=== PATIENT | male | born 1965 | race Hispanic/Latino ===

== ENCOUNTER 2020-06-09 11:34 | Emergency (ER) | payer BC ==
[2020-06-09 12:15] VITALS: BP 145/87
--- NOTE | 2020-06-09 12:18 | Event Note ---
ED Screening Note ED Screening Note: comes to ER with r side pain pmh has been told in the past he had fluid on his lung-no follow up no meds no rx no cig/etoh/drugs HR 120's temp 100.5 no cough no fever at home denies cp This initial assessment/diagnostic orders/clinical plan/treatment(s) is/are subject to change based on patients health status, clinical progression and re- assessment by fellow clinical providers in the ED. Further treatment and workup at subsequent clinical providers discretion. Patient/guardian urged not to elope from the ED as their condition may be serious if not clinically assessed and managed. Initial orders include: labs ekg xray
--- NOTE | 2020-06-09 12:42 | XRay Report ---
XR chest routine 2V INDICATION / CLINICAL INFORMATION: Chest Pain COMPARISON: None available. FINDINGS: SUPPORT DEVICES: None. HEART / MEDIASTINUM: No significant abnormality. LUNGS / PLEURA: Linear parenchymal opacities in the bilateral lower lung zones. Costophrenic sulci ar e sharp. No pneumothorax. ADDITIONAL FINDINGS: No significant additional findings. IMPRESSION: 1. Linear parenchymal opacities in the lower lung zones could represent subsegmental atelectasis and/ or scarring. No definite airspace disease. Signer Name: Gunnar Benitez MD Signed: 06/09/2020 12:37 PM Workstation Name: [id number]
[2020-06-09 13:13] LABS: Basophils % (Auto) 0.3 % (0.0-1.8); Eosinophils % (Auto) 0.2 % (0.0-4.3); Hematocrit 44.8 % (35.5-45.6); Hemoglobin 15.2 gm/dl (11.8-15.2); Lymphocytes # (Auto) 1.1 K/mm3 (1.2-5.4); Lymphocytes % (Auto) 12.9 % (13.4-35.0); Mean Corpuscular HGB Conc 34 % (32-34); Mean Corpuscular Volume 93 fl (84-94); Monocytes # (Auto) 0.5 K/mm3 (0.0-0.8); Monocytes % (Auto) 5.9 % (0.0-7.3); Platelet Count 236 K/mm3 (140-440); Red Blood Count 4.83 M/mm3 (3.65-5.03); Red Cell Distribution Width 14.9 % (13.2-15.2)
[2020-06-09 13:38] LABS: Alanine Aminotransferase 12 units/L (7-56); Albumin 4.2 g/dL (3.9-5); BUN/Creatinine Ratio 6; Blood Urea Nitrogen 9 mg/dL (9-20); Calcium 9.3 mg/dL (8.4-10.2); Hemolysis Index 4
--- NOTE | 2020-06-09 14:25 | Emergency Department Report ---
ED General Adult HPI - General Chief complaint: Back Pain/Injury Stated complaint: NECK/BACK PAIN PUI?: Yes Time Seen by Provider: 06/09/20 12:16 Source: patient Mode of arrival: Wheelchair Limitations: Physical Limitation - History of Present Illness Initial comments: CC: neck pain, right side pain, right hip pain HPI: This is a 54 yo male with hx of gout, cervical DDD, lumbar DDD s/p lumbar fusion, "fluid on the lungs" who presents with several weeks of pain. He first noticed neck pain which improved with ibuprofen. He then developed severe right sided torso pain in the mid-axillary region of thorax and flank. He has has severe right hip pain. Pain in flank worse with inspiration and laughter, sharp, 10/10. Patient has difficulty bearing weight on right hip. Neck pain dull achy. Diffuse. Mild in nature. Patient denies use of recreational drugs. Patient does not have a PCP. He previously followed learning coordinator Dr. Braga for gout. He takes colchicine. He does not take any other medication. -: Gradual, week(s) (3 weeks) Location: neck, chest, back, right, upper extremity Severity scale (0 -10): 10 Quality: aching, sharp Consistency: constant Improves with: none Worsens with: movement Associated Symptoms: other (Fever detected at triage) Treatments Prior to Arrival: none - Related Data Previous Rx's Medication Instructions Recorded Last Taken Type Azithromycin [Zithromax TAB] 250 mg PO QDAY 5 Days #6 tablet 06/09/20 Unknown Rx HYDROcodone/APAP 5-325 [[place] 1 each PO Q6HR PRN #15 tablet 06/09/20 Unknown Rx 5/325] Ibuprofen [Motrin 800 MG tab] 800 mg PO Q8HR PRN #20 tablet 06/09/20 Unknown Rx Allergies Allergy/AdvReac Type Severity Reaction Status Date / Time No Known Allergies Allergy Unverified 06/09/20 12:11 ED Review of Systems ROS: Stated complaint: NECK/BACK PAIN Other details as noted in HPI Comment: All other systems reviewed and negative Constitutional: denies: chills, fever, malaise Respiratory: denies: cough, shortness of breath Cardiovascular: chest pain Gastrointestinal: denies: abdominal pain, nausea, vomiting Musculoskeletal: arthralgia ED Past Medical Hx - Past Medical History Previous Medical History?: Yes Additional medical history: FLUID AROUND LUNGS/ GOUT - Surgical History Past Surgical History?: Yes Additional Surgical History: TONSILS BACK L5 FUSION - Social History Smoking Status: Never Smoker Substance Use Type: None - Medications Home Medications: Home Medications Medication Instructions Recorded Confirmed Last Taken Type Azithromycin [Zithromax TAB] 250 mg PO QDAY 5 Days #6 tablet 06/09/20 Unknown Rx HYDROcodone/APAP 5-325 [[place] 1 each PO Q6HR PRN #15 tablet 06/09/20 Unknown Rx 5/325] Ibuprofen [Motrin 800 MG tab] 800 mg PO Q8HR PRN #20 tablet 06/09/20 Unknown Rx ED Physical Exam - General Limitations: Physical Limitation General appearance: alert, in no apparent distress, other (Appears extremely uncomfortable, laying on left side) - Head Head exam: Present: atraumatic, normocephalic - Eye Eye exam: Present: normal appearance - ENT ENT exam: Present: mucous membranes moist - Neck Neck exam: Present: normal inspection - Respiratory Respiratory exam: Present: normal lung sounds bilaterally. Absent: respiratory distress - Cardiovascular Cardiovascular Exam: Present: normal rhythm, tachycardia, normal heart sounds. Absent: systolic murmur, diastolic murmur, rubs, gallop - GI/Abdominal GI/Abdominal exam: Present: soft, normal bowel sounds. Absent: distended, tende rness, guarding, rebound - Rectal Rectal exam: Present: deferred - Extremities Exam Extremities exam: Present: normal inspection - Expanded Lower Extremity Exam Right Hip exam: Present: normal inspection, full ROM. Absent: tenderness, swelling, abrasion, laceration, ecchymosis Upper Leg exam: Present: normal inspection, full ROM. Absent: tenderness, swelling Knee exam: Present: normal inspection, full ROM - Neurological Exam Neurological exam: Present: alert, oriented X3 - Psychiatric Psychiatric exam: Present: normal affect, normal mood - Skin Skin exam: Present: warm, dry, intact, normal color. Absent: rash ED Course Vital Signs 06/09/20 06/09/20 12:12 12:15 Temperature 100.5 F H Pulse Rate 121 H Respiratory 24 Rate Blood Pressure 145/87 [Right] O2 Sat by Pulse 96 Oximetry ED Medical Decision Making - Lab Data Result diagrams: 06/09/20 12:50 06/09/20 14:41 Laboratory Results - last 24 hr 06/09/20 06/09/20 06/09/20 12:50 12:51 13:04 WBC 8.6 RBC 4.83 Hgb 15.2 Hct 44.8 MCV 93 MCH 32 MCHC 34 RDW 14.9 Plt Count 236 Lymph % (Auto) 12.9 L [place] % (Auto) 5.9 Eos % (Auto) 0.2 Baso % (Auto) 0.3 Lymph # (Auto) 1.1 L [place] # (Auto) 0.5 Eos # (Auto) 0.0 Baso # (Auto) 0.0 Seg Neutrophils % 80.7 H Seg Neutrophils # 6.9 Sodium 135 L Potassium 4.5 Chloride 99.6 Carbon Dioxide 24 Anion Gap 16 BUN 9 Creatinine 1.5 H Estimated GFR 49 BUN/Creatinine Ratio 6 Glucose 141 H Lactic Acid 1.00 Calcium 9.3 Total Bilirubin 0.70 AST 13 ALT 12 Alkaline Phosphatase 56 Troponin T < 0.010 NT-Pro-B Natriuret Pep Total Protein 7.9 Albumin 4.2 Albumin/Globulin Ratio 1.1 Lipase 16 06/09/20 13:04 WBC RBC Hgb Hct MCV MCH MCHC RDW Plt Count Lymph % (Auto) [place] % (Auto) Eos % (Auto) Baso % (Auto) Lymph # (Auto) [place] # (Auto) Eos # (Auto) Baso # (Auto) Seg Neutrophils % Seg Neutrophils # Sodium Potassium Chloride Carbon Dioxide Anion Gap BUN Creatinine Estimated GFR BUN/Creatinine Ratio Glucose Lactic Acid Calcium Total Bilirubin AST ALT Alkaline Phosphatase Troponin T NT-Pro-B Natriuret Pep 11.86 Total Protein Albumin Albumin/Globulin Ratio Lipase - EKG Data -: EKG Interpreted by Oh EKG shows normal: sinus rhythm, intervals, QRS complexes, ST-T waves Rate: tachycardia - EKG Data 06/09/20 14:38 EKG obtained 1427 EKG interpreted by id Sinus tachycardia 110 bpm normal rate left axis deviation normal intervals no ST elevation no ST-T signs of ischemia - Radiology Data Radiology results: report reviewed, image reviewed CT ABDOMEN AND PELVIS WITH CONTRAST INDICATION / CLINICAL INFORMATION: Pleuritic chest pain. Fever. Right hip pain. TECHNIQUE: Axial CT images were obtained through the abdomen and pelvis after 100 MLO Omnipaque [address] scans at this location are performed using CT dose reduction for ALARA by means of automated exposure control. COMPARISON: None available. FINDINGS: LOWER CHEST: Linear bibasilar atelectasis. LIVER: No significant abnormality. GALLBLADDER: Multiple tiny layering gallstones. No gallbladder wall thickening or edema. BILE DUCTS: No significant abnormality. PANCREAS: No significant abnormality. SPLEEN: No significant abnormality. ADRENALS: No significant abnormality. RIGHT KIDNEY / URETER: No significant abnormality. LEFT KIDNEY / URETER: No significant abnormality. STOMACH / SMALL BOWEL: Small sliding-type hiatal hernia. No small bowel abnormality. COLON: Diverticulosis without acute inflammation. APPENDIX: No significant abnormality. PERITONEUM: No free fluid. No free air. No fluid collection. LYMPH NODES: No significant adenopathy. AORTA / ARTERIES: No significant abnormality. IVC / VEINS: No significant abnormality. URINARY BLADDER: No significant abnormality. REPRODUCTIVE ORGANS: No significant abnormality. ADDITIONAL FINDINGS: None. SKELETAL SYSTEM: No significant abnormality. Specifically, no acute abnormality of the right hip. IMPRESSION: 1. No acute process in the abdomen or pelvis. 2. Small hiatal hernia. 3. Cholelithiasis. Findings Reporting MD: Joyce Ruiz Dictation Time: June 09, 2020 15:54 Small Business Banking Officer: Not available Termite Treater Date: CTA CHEST WITH CONTRAST INDICATION / CLINICAL INFORMATION: Pleuritic chest pain. Fever. TECHNIQUE: Axial CT images were obtained through the chest after injection of 100 MLO Omnipaque 350 IV contrast. 3 plane MIP and/or 3D reconstructions were produced. All CT scans at this location are performed using CT dose reduction for ALARA by means of automated exposure control. COMPARISON: None available. FINDINGS: Quality of the study is fair due to slightly suboptimal timing of the contrast bolus in the pulmonary arteries. PULMONARY ARTERIES: No definite pulmonary emboli. THORACIC AORTA: No significant abnormality. HEART: No significant abnormality. CORONARY ARTERY CALCIFICATION: None. MEDIASTINUM / RAMONITA: No significant abnormality. PLEURA: No pleural effusion. No pneumothorax. LUNGS: Linear bibasilar atelectasis. No acute airspace disease. ADDITIONAL FINDINGS: None. UPPER ABDOMEN: Layering gallstones within the gallbladder without wall thickening or inflammation. Small sliding-type hiatal hernia. SKELETAL STRUCTURES: No significant osseous abnormality. IMPRESSION: 1. No definite pulmonary embolus on this technically limited study. 2. Linear bibasilar atelectasis. No pneumonia or pleural effusion. 3. Tiny layering gallstones and small hiatal hernia. Findings Reporting MD: Homar Jean Baptiste Dictation Time: June 09, 2020 15:50 Small Business Banking Officer: Not available Termite Treater Date: CT lower extremity RT wo con INDICATION: fever right hip pain. TECHNIQUE: All CT scans at this location are performed using CT dose reduction for ALARA by means of automated exposure control. COMPARISON: None available. FINDINGS: No fracture or dislocation involving right hip or visualized pelvis. Small erosion anterior aspect right SI joint. No destructive changes of right hip to suggest CT evidence for osteomyelitis. No soft tissue swelling/subcutaneous edema IMPRESSION: 1. No CT evidence for septic arthritis/osteomyelitis. If clinical suspicion remains high despite negative CT, right hip MRI or right hip aspiration may be more sensitive for earlier detection - Medical Decision Making This is a 54-year-old male presents with diffuse body aches including right pleuritic pain of the thorax and flank in addition to neck pain right hip pain. Patient had extensive work-up to rule out septic arthritis pulmonary embolism intra-abdominal entity. No discrete spinal tenderness or pain to suggest discitis or epidural abscess. Patient does not have risk factors for epidural abscess. I suspect COVID-19 infection with low-grade fever. Patient does have gallstones hiatal hernia on CT scan. I recommended outpatient COVID-19 testing. Also gave patient referral to outpatient medicine physician orthopedic surgeon. Labs obtained include normal CBC elevated D-dimer elevated ferritin and CRP Critical care attestation.: If time is entered above; I have spent that time in minutes in the direct care of this critically ill patient, excluding procedure time. ED Disposition Clinical Impression: Suspected COVID-19 virus infection Disposition: DC- TO HOME OR SELFCARE Is pt being admited?: No Does the pt Need Aspirin: No Condition: Stable Instructions: COVID-19 Prescriptions: Ibuprofen [Motrin 800 MG tab] 800 mg PO Q8HR PRN #20 tablet PRN Reason: Pain , Severe (7-10) HYDROcodone/APAP 5-325 [[place] 5/325] 1 each PO Q6HR PRN #15 tablet PRN Reason: Pain Azithromycin [Zithromax TAB] 250 mg PO QDAY 5 Days #6 tablet Referrals: EMI PETER MD [Staff Physician] - 3-5 Days CYNTHIA SIMMONS MD [Staff Physician] - 3-5 Days
[2020-06-09 15:34] LABS: C-Reactive Protein 6.4 mg/dL (0.00-1.30)
--- NOTE | 2020-06-09 16:55 | Cat Scan Report ---
CT lower extremity RT wo con INDICATION: fever right hip pain. TECHNIQUE: All CT scans at this location are performed using CT dose reduction for ALARA by means of automated e xposure control. COMPARISON: None available. FINDINGS: No fracture or dislocation involving right hip or visualized pelvis. Small erosion anterior aspect ri ght SI joint. No destructive changes of right hip to suggest CT evidence for osteomyelitis. No soft t issue swelling/subcutaneous edema IMPRESSION: 1. No CT evidence for septic arthritis/osteomyelitis. If clinical suspicion remains high despite nega tive CT, right hip MRI or right hip aspiration may be more sensitive for earlier detection Signer Name: Homar Jean Baptiste MD Signed: 06/09/2020 4:50 PM Workstation Name: [id number]
--- NOTE | 2020-06-09 16:59 | Cat Scan Report ---
CTA CHEST WITH CONTRAST INDICATION / CLINICAL INFORMATION: Pleuritic chest pain. Fever. TECHNIQUE: Axial CT images were obtained through the chest after injection of 100 MLO Omnipaque 350 I V contrast. 3 plane MIP and/or 3D reconstructions were produced. All CT scans at this location are pe rformed using CT dose reduction for ALARA by means of automated exposure control. COMPARISON: None available. FINDINGS: Quality of the study is fair due to slightly suboptimal timing of the contrast bolus in the pulmonary arteries. PULMONARY ARTERIES: No definite pulmonary emboli. THORACIC AORTA: No significant abnormality. HEART: No significant abnormality. CORONARY ARTERY CALCIFICATION: None. MEDIASTINUM / RAMONITA: No significant abnormality. PLEURA: No pleural effusion. No pneumothorax. LUNGS: Linear bibasilar atelectasis. No acute airspace disease. ADDITIONAL FINDINGS: None. UPPER ABDOMEN: Layering gallstones within the gallbladder without wall thickening or inflammation. Sm all sliding-type hiatal hernia. SKELETAL STRUCTURES: No significant osseous abnormality. IMPRESSION: 1. No definite pulmonary embolus on this technically limited study. 2. Linear bibasilar atelectasis. No pneumonia or pleural effusion. 3. Tiny layering gallstones and small hiatal hernia. Signer Name: Joyce Ruiz MD Signed: 06/09/2020 4:54 PM Workstation Name: [id number]
--- NOTE | 2020-06-09 17:04 | Cat Scan Report ---
CT ABDOMEN AND PELVIS WITH CONTRAST INDICATION / CLINICAL INFORMATION: Pleuritic chest pain. Fever. Right hip pain. TECHNIQUE: Axial CT images were obtained through the abdomen and pelvis after 100 MLO Omnipaque 350 I V contrast. All CT scans at this location are performed using CT dose reduction for ALARA by means o f automated exposure control. COMPARISON: None available. FINDINGS: LOWER CHEST: Linear bibasilar atelectasis. LIVER: No significant abnormality. GALLBLADDER: Multiple tiny layering gallstones. No gallbladder wall thickening or edema. BILE DUCTS: No significant abnormality. PANCREAS: No significant abnormality. SPLEEN: No significant abnormality. ADRENALS: No significant abnormality. RIGHT KIDNEY / URETER: No significant abnormality. LEFT KIDNEY / URETER: No significant abnormality. STOMACH / SMALL BOWEL: Small sliding-type hiatal hernia. No small bowel abnormality. COLON: Diverticulosis without acute inflammation. APPENDIX: No significant abnormality. PERITONEUM: No free fluid. No free air. No fluid collection. LYMPH NODES: No significant adenopathy. AORTA / ARTERIES: No significant abnormality. IVC / VEINS: No significant abnormality. URINARY BLADDER: No significant abnormality. REPRODUCTIVE ORGANS: No significant abnormality. ADDITIONAL FINDINGS: None. SKELETAL SYSTEM: No significant abnormality. Specifically, no acute abnormality of the right hip. IMPRESSION: 1. No acute process in the abdomen or pelvis. 2. Small hiatal hernia. 3. Cholelithiasis. Signer Name: Joyce Ruiz MD Signed: 06/09/2020 5:00 PM Workstation Name: [id number]
== END 2020-06-09 17:56 | disposition home or self-care (01) ==
LOC: ED 11:34
DX: M54.2 Cervicalgia (principal); M54.9 Dorsalgia, unspecified; Z79.899 Other long term (current) drug therapy; Z98.890 Other specified postprocedural states; Z20.822 Contact with and (suspected) exposure to COVID-19
CPT/HCPCS: 36415; 71046; 71275; 73700; 74177; 80053; 82140; 82728; 82947; 83520; 83615; 83690; 83880; 84145; 84484; 85025; 85379; 85652; 86140; 87040; 93005; 99284; Q9967

== ENCOUNTER 2020-09-16 09:34 | Outpatient (CLI) | payer OTHER ==
--- NOTE | 2020-09-16 12:59 | XRay Report ---
CERVICAL SPINE 3 VIEWS INDICATION: Neck pain. COMPARISON: None. IMPRESSION: There is straightening of the normal lordosis. No subluxation. Moderate to severe discog enic DJD is identified at C4-5, C5-6 and C6-7. The facet joints are unremarkable. No acute osseous or soft tissue abnormality. LUMBOSACRAL SPINE 3 VIEWS INDICATION: BACK PAIN. COMPARISON: None. IMPRESSION: Normal alignment. Mild discogenic DJD is identified at L5-S1. The remaining disc levels are unremarkable. The facet joints are within normal limits. Mild symmetric osteoarthritic changes a re noted at the SI joints. No acute osseous or soft tissue abnormality. Signer Name: Aston Berger Jr, MD Signed: 09/16/2020 12:55 PM Workstation Name: [id number]
== END 2020-09-16 09:35 | disposition home or self-care (01) ==
LOC: XRAY 09:34
PROVIDERS: ATTEND Internal Medicine
DX: M47.812 Spondylosis without myelopathy or radiculopathy, cervical region (principal); M47.817 Spondylosis without myelopathy or radiculopathy, lumbosacral region; M47.898 Other spondylosis, sacral and sacrococcygeal region; Z02.71 Encounter for disability determination
CPT/HCPCS: 72040; 72100

== ENCOUNTER 2020-10-13 12:55 | Outpatient (CLI) | payer OTHER | END 2020-10-13 12:56 | disposition home or self-care (01) | LOC: PF 12:55 | PROVIDERS: ATTEND Internal Medicine | DX: Z02.71 Encounter for disability determination (principal) | CPT/HCPCS: 94010 ==

== ENCOUNTER 2021-08-18 21:30 | Emergency (ER) | payer BC, OTHER ==
[2021-08-19] MEDS ORDERED: ONDANSETRON 4 MG/2 ML INJ IV ONE (06:45)
[2021-08-19] MEDS ORDERED: fentaNYL 100 MCG/2 ML INJ IV ONE (06:45)
[2021-08-19] MEDS ORDERED: KETOROLAC 30 MG/1 ML INJ IV ONE (06:46)
--- NOTE | 2021-08-19 06:51 | Emergency Department Report ---
HPI - General Chief Complaint: Pain General Time Seen by Provider: 08/19/21 06:37 - HPI HPI: Room 21 The patient is a 55-year-old male present with chief complaint of neck pain. The patient states the past 2 days he has had pain in his neck. The patient denies any preceding trauma. Patient states whenever he turns his neck to the right or raises his chin he has pain that radiates down his right upper extremity that is sharp in nature. Patient denies paresthesia. Patient currently gives his pain a score of 8/10. Patient states he was driven to the emergency department by family and is not driving ED Past Medical Hx - Past Medical History Additional medical history: FLUID AROUND LUNGS/ GOUT - Surgical History Additional Surgical History: TONSILS BACK L5 FUSION - Family History Family history: no significant - Social History Smoking Status: Never Smoker Substance Use Type: None (Denies illicit drug use), Alcohol (Occasional) - Medications Home Medications: Home Medications Medication Instructions Recorded Confirmed Last Taken Type Azithromycin [Zithromax TAB] 250 mg PO QDAY 5 Days #6 tablet 06/09/20 Unknown Rx HYDROcodone/APAP 5-325 [[place] 1 each PO Q6HR PRN #15 tablet 06/09/20 Unknown Rx 5/325] Ibuprofen [Motrin 800 MG tab] 800 mg PO Q8HR PRN #20 tablet 06/09/20 Unknown Rx HYDROcodone/APAP 5-325 [[place] 1 - 2 each PO Q6HR PRN #14 tablet 08/19/21 Unknow n Rx 5/325] Ibuprofen [Motrin 800 MG tab] 800 mg PO Q8HR PRN #20 tablet 08/19/21 Unknown Rx ED Review of Systems ROS: Stated complaint: RIGHT SIDE PAIN FROM NECK TO SHOULDER Other details as noted in HPI Constitutional: no symptoms reported Eyes: denies: eye pain ENT: denies: throat pain Respiratory: no symptoms reported Cardiovascular: denies: chest pain Endocrine: no symptoms reported Gastrointestinal: denies: abdominal pain Genitourinary: denies: dysuria Musculoskeletal: arthralgia Neurological: denies: paresthesias Physical Exam - Physical Exam Vital Signs: Vital Signs 08/18/21 08/19/21 22:09 04:59 Temperature 98.5 F Pulse Rate 100 H 81 Respiratory 16 25 H Rate Blood Pressure 172/115 Blood Pressure 176/111 [Left] O2 Sat by Pulse 92 98 Oximetry Physical Exam: GENERAL: The patient is well-developed well-nourished male lying on stretcher not appearing to be in acute distress. [] HEENT: Normocephalic. Atraumatic. Extraocular motions are intact. Patient has moist mucous membranes. NECK: Supple. Mid and lower cervical tenderness to palpation. No axial step- off. Decreased range of motion secondary to pain CHEST/LUNGS: Clear to auscultation. There is no respiratory distress noted. HEART/CARDIOVASCULAR: Regular. There is no tachycardia. There is no gallop rub or murmur. 2+ right radial pulse ABDOMEN: Abdomen is soft, nontender. Patient has normal bowel sounds. There is no abdominal distention. SKIN: There is no rash. There is no edema. There is no diaphoresis. NEURO: The patient is awake, alert, and oriented. The patient is cooperative. The patient has no focal neurologic deficits. The patient has normal speech. Normal median, ulnar and radial nerve function exhibited in right hand. MUSCULOSKELETAL: There is decreased range of motion of the neck secondary to pain. There is no evidence of acute injury. ED Course Vital Signs 08/18/21 08/19/21 22:09 04:59 Temperature 98.5 F Pulse Rate 100 H 81 Respiratory 16 25 H Rate Blood Pressure 172/115 Blood Pressure 176/111 [Left] O2 Sat by Pulse 92 98 Oximetry ED Medical Decision Making - Radiology Data Radiology results: report reviewed (CT cervical spine), image reviewed (CT cervical spine) [facility] [address] [place] [address] Cat Scan Report Signed Patient: MEDINA WATERMAN MR#: [id number] : 1965 Acct:[id number] Age/Sex: 55 / M ADM Date: 08/18/21 Loc: ED Attending Dr: Ordering Physician: LAURA WALL MD Date of Service: 08/19/21 Procedure(s): CT cervical spine wo con Accession Number(s): [id number] cc: LAURA WALL MD CT CERVICAL SPINE WITHOUT CONTRAST INDICATION / CLINICAL INFORMATION: Neck pain radiating to right upper extremity. TECHNIQUE: Axial CT images were obtained through the cervical spine. Sagittal and coronal reformatted images were produced. All CT scans at this location are performed using CT dose reduction for ALARA by means of automated exposure control. COMPARISON: None available. FINDINGS: Alignment: Reversal of normal cervical lordosis. No significant malalignment. Geographic Bone Lesion: None present. Fracture: No acute fracture. Degenerative Changes: Advanced multilevel cervical spondylosis: * C2-C3: Right asymmetric facet arthropathy without significant osseous narrowing. * C3-C4: Left asymmetric facet arthropathy and left asymmetric posterior disc osteophyte complex at C3-C4 results in severe left foraminal narrowing. * C4-C5: Bilateral facet arthropathy with prominent left asymmetric posterior disc osteophyte complex resulting in severe left and moderate right foraminal narrowing. There is moderate to severe central canal narrowing. * C5- C6: Bilateral facet arthropathy with circumferential posterior disc osteophyte complex resulting in moderate left greater than right foraminal narrowing. There is severe central canal narrowing. * C6-C7: Bilateral facet arthropathy with left asymmetric facet arthropathy resulting in severe left and moderate to severe right foraminal narrowing and severe central canal narrowing. * C7-T1: No significant osseous narrowing. Epidural Hematoma: Not present. Prevertebral / Paraspinal Soft Tissues: Unremarkable. IMPRESSION: 1. No acute findings of the cervical spine. 2. Advanced multilevel cervical spondylosis, as above. Signer Name: Dileep Vigil MD Signed: 08/19/2021 7:21 AM Workstation Name: [id number] Transcribed By: SARAH Dictated By: DILEEP VIGIL MD Electronically Authenticated By: DILEEP VIGIL MD Signed Date/Time: 08/19/21720 DD/ 5 TD/TT: - Differential Diagnosis Cervical radiculopathy, cervical strain, occult fracture Critical care attestation.: If time is entered above; I have spent that time in minutes in the direct care of this critically ill patient, excluding procedure time. ED Disposition Clinical Impression: Cervical radiculopathy Disposition: 01 HOME / SELF CARE / HOMELESS Is pt being admited?: No Does the pt Need Aspirin: No Condition: Stable Instructions: Cervical Radiculopathy, [id number] Additional Instructions: Return to the emergency department should you develop worsening symptoms, inability to tolerate food or liquids, high fever or any other concerns Prescriptions: Ibuprofen [Motrin 800 MG tab] 800 mg PO Q8HR PRN #20 tablet PRN Reason: Pain, Moderate (4-6) HYDROcodone/APAP 5-325 [[place] 5/325] 1 - 2 each PO Q6HR PRN #14 tablet PRN Reason: Pain Referrals: DIVINE COLIN II, MD [Staff Physician] - [facility] (Dr. Colin is a neurosurgeon/extracorporeal circulation specialist. Please follow-up with him for further evaluation/management) Time of Disposition: 07:45
--- NOTE | 2021-08-19 07:25 | Cat Scan Report ---
CT CERVICAL SPINE WITHOUT CONTRAST INDICATION / CLINICAL INFORMATION: Neck pain radiating to right upper extremity. TECHNIQUE: Axial CT images were obtained through the cervical spine. Sagittal and coronal reformatted images were produced. All CT scans at this location are performed using CT dose reduction for [place] by means of automated exposure control. COMPARISON: None available. FINDINGS: Alignment: Reversal of normal cervical lordosis. No significant malalignment. Geographic Bone Lesion: None present. Fracture: No acute fracture. Degenerative Changes: Advanced multilevel cervical spondylosis: * C2-C3: Right asymmetric facet arthropathy without significant osseous narrowing. * C3-C4: Left asymmetric facet arthropathy and left asymmetric posterior disc osteophyte complex at C3-C4 results in severe left foraminal narrowing. * C4-C5: Bilateral facet arthropathy with prominent left asymmetric posterior disc osteophyte comple x resulting in severe left and moderate right foraminal narrowing. There is moderate to severe centra l canal narrowing. * C5-C6: Bilateral facet arthropathy with circumferential posterior disc osteophyte complex resultin g in moderate left greater than right foraminal narrowing. There is severe central canal narrowing. * C6-C7: Bilateral facet arthropathy with left asymmetric facet arthropathy resulting in severe left and moderate to severe right foraminal narrowing and severe central canal narrowing. * C7-T1: No significant osseous narrowing. Epidural Hematoma: Not present. Prevertebral / Paraspinal Soft Tissues: Unremarkable. IMPRESSION: 1. No acute findings of the cervical spine. 2. Advanced multilevel cervical spondylosis, as above. Signer Name: Denny Vigil MD Signed: 08/19/2021 7:21 AM Workstation Name: [id number]
[2021-08-19 08:19] VITALS: BP 168/109
== END 2021-08-19 10:36 | disposition home or self-care (01) ==
LOC: ED 21:30
DX: M54.12 Radiculopathy, cervical region (principal)
CPT/HCPCS: 72125; 96374; 96375; 99283; J1885; J2405; J3010